=== PATIENT | female | born 1960 | race Caucasian/White ===

== ENCOUNTER 2018-12-26 09:12 | Inpatient (IN) ==
--- NOTE | 2018-11-25 12:55 | PAT Medication Instructions ---
Medication Instructions Date of Service November 25, 2018 Home Medications cholecalciferol (vitamin D3) [Vitamin D3] 2,000 unit PO QAM fluoxetine 40 mg PO QAM levothyroxine 125 mcg PO QAM meloxicam 15 mg PO QAM ASK your surgeon for instructions meloxicam 15 mg PO QAM DO NOT take the morning of surgery cholecalciferol (vitamin D3) [Vitamin D3] 2,000 unit PO QAM Take morning of surgery With a small sip of water, OTHERWISE NOTHING TO EAT OR DRINK AFTER MIDNIGHT: fluoxetine 40 mg PO QAM levothyroxine 125 mcg PO QAM Other Notes If you have any questions please call us at [phone] or [phone] or [phone] or [phone]
--- NOTE | 2018-11-25 12:55 | Anesthesiology Consultation ---
Date of Service November 25, 2018 Assessment & Plan (1) Fear of needles: (2) Encounter for pre-operative examination: - Patient anxious RE: needles-- requests anxiolytic prior to IV placement if possible* Chart Review Chart Review: Pending: Refer to Additional Notes / Consult section (pending preop testing (labs, EKG, CXR)) and Patient seen in Pre Admission Testing Teaching & Discussion Pre-Anesthesia Teaching/Discussion Notes: Instructed NPO after midnight before surgery,except medications with 15 cc of water. Medication instructions provided according to the PAT guidelines. History Surgery Operation Date: 12/26/18 07:00 Proposed Procedures p Left Total Knee Arthroplasty - Will Elizondo MD Height/Weight Height: 5 ft 9 in Weight: 114.3 kg Allergies Allergy/AdvReac Type Severity Reaction Status Date / Time No Known Allergies Allergy Verified 11/20/18 10:31 Medications Home Medications Medication Instructions Recorded Confirmed Last Taken cholecalciferol (vitamin D3) 2,000 unit PO QAM 11/20/18 11/20/18 11/20/18 [Vitamin D3] fluoxetine 40 mg PO QAM 11/20/18 11/20/18 11/20/18 levothyroxine 125 mcg PO QAM 11/20/18 11/20/18 Unknown meloxicam 15 mg PO QAM 11/20/18 11/20/18 11/20/18 Past Medical History Medical History Anxiety and depression Arthritis Degenerative disc disease Fear of needles Hypothyroidism Obesity Osteoarthritis Sleep apnea "could not tolerate" CPAP Exercise / Class Metabolic Activity III < 4 Walking/Shop/Light housework Past Surgical History Surgical History History of appendectomy History of colonoscopy History of laparoscopic cholecystectomy History of surgery on extremity LEFT LEG History of total hysterectomy History of total knee replacement (TKR) RIGHT Past Anesthesia History No Hx of Anesthesia Complications and No Family Hx of Anesthesia Complications History of PONV No Hx of PONV and No Hx of Motion Sickness Social History Smoking Status: Former smoker Do You Dip or Chew Tobacco: No Smoking End Date: QUIT 30 YR AGO Hx Alcohol Use: No Hx Substance Use: No substance use type: does not use Review of Systems Patient denies chest pain, shortness of breath, reflux, cough, wheezing, palpitations. Physical Exam Vital Signs VITALS BP 151/98 (patient very anxious RE: needles/upcoming surgery- Patient advised to followup with PCP regarding elevated BP) P 62 TEMP 98.3 SP02 95%RA RESP 16 PHYSICAL Full neck and c-spine range of motion. Full TMJ range of motion. TMD 3 finger breaths Mallampati Score 2 Dentition: intact Lungs: clear throughout to auscultation Cardiac: regular rate and rhythm, no murmurs noted Spine: normal Carotid arteries: negative bruit Extremities: no edema
--- NOTE | 2018-11-25 13:56 | XRay Report ---
XR chest Pre-admission PA/Lat CLINICAL HISTORY: Preoperative chest COMPARISON STUDY: No previous studies for comparison. FINDINGS: The cardiac and mediastinal contours are normal. There is no evidence of focal pulmonary co nsolidation. There is no evidence of failure. No pleural effusions are visualized.[ IMPRESSION: No active disease in the chest. Electronically signed by: Wayne Jimenes M.D. 11/25/2018 1:54 PM
[2018-11-25 16:03] LABS: Appearance Urine Clear (Clear); Basophils # (auto) 0.04 K/uL (0-0.2); Basophils % (auto) 0.5 %; Bilirubin Urine Negative (Negative); Blood Urine Negative (Negative); Color Urine Yellow; Eosinophils # (auto) 0.19 K/uL (0-0.5); Eosinophils % (auto) 2.2 %; Glucose Urine UA Negative (Negative); Hematocrit (blood only) 40.7 % (37-47); Hemoglobin 13.2 g/dL (12.0-16.0); Immature Granulocytes # (auto) 0.01 K/uL (0.00-0.02); Immature Granulocytes % (auto) 0.1 %; Ketones Urine Trace (Negative); Leukocyte Esterase Urine Negative (Negative); Lymphocytes # (auto) 3.27 K/uL (1.2-3.4); Mean Corpuscular Hemoglobin 30.2 pg (25-34); Mean Corpuscular Hgb Conc 32.4 g/dL (32-36); Mean Corpuscular Volume 93.1 fL (80-100); Mean Platelet Volume 11.6 fL (7.4-10.4); Monocytes # (auto) 0.57 K/uL (0.11-0.59); Monocytes % (auto) 6.5 %; Neutrophils # (auto) 4.75 K/uL (1.4-6.5); Neutrophils % (auto) 53.7 %; Nitrite Urine Negative (Negative); Platelet Count 315 K/uL (130-400); Protein Urine Negative (Negative); RDW Coefficient of Variation 12.9 % (11.5-14.5); RDW Standard Deviation 44.1 fL (36.4-46.3); Red Blood Count 4.37 M/uL (4.2-5.4); Urobilinogen Urine Negative (Negative); White Blood Count 8.83 K/uL (4.8-10.8)
[2018-11-25 16:14] LABS: Albumin Level 3.6 gm/dl (3.4-5.0); BUN Creatinine Ratio 19.7 (10-20); Calcium 8.7 mg/dl (8.5-10.1); Creatinine Clr Calc Pharmacy 104.6 ml/min; Est GFR (African American) 93.4; Est GFR (Non-African American) 80.6; Potassium 3.9 mmol/L (3.5-5.1)
[2018-11-25 16:18] LABS: Partial Thromboplastin Ratio 0.9; Partial Thromboplastin Time 25.7 Seconds (21.0-31.0); Prothrombin Time 10.3 Seconds (9.0-12.0)
[2018-11-26 06:08] LABS: Estimated Average Glucose 134 mg/dl; Hemoglobin A1C 6.3 % (4.5-5.6)
--- NOTE | 2018-11-27 12:25 | History & Physical Report ---
Date of Service November 27, 2018 Assessment & Plan (1) Primary osteoarthritis of left knee: Treatment options were discussed. Patient has fairly significant osteoarthritis of left knee. She has failed conservative measures as above. Pain is interfering with ability to carry out daily activities. Risks, benefits and alternatives to surgery including but not limited to infection, DVT, pain, stiffness, need for revision surgery, damage to blood vessels, damage to nerves, PE, , were discussed with the patient and they wish to proceed. Plan will be for left total knee arthroplasty on 12/26/18. Plan will be for aspirin 81mg BID x 30 days for DVT prophylaxis. Will plan on outpatient PT upon discharge from hospital. All questions answered. She will follow up post operatively. History of Present Illness Chief Complaint: Left knee pain Primary Care Provider: Elizabeth Ambrocio PA-C Patient is a 57 year old female with PMHx significant for ELEANOR (no cpap), hypothyroidism, anxiety/depression, previous right knee replacement. She presents with long standing left knee pain. She has failed conservative measures including cortisone injections and anti-inflammatory medications. She would like to proceed with left knee replacement. Patient denies headaches, sweats, fevers, chills, double vision, blurred vision, cough, sore throat, dysphagia, chest pain, sob, wheezing, n/v/d/c, numbness, tingling, fatigue, urinary symptoms, mood disorders. ROS positive for left knee pain and stiffness. Allergies Allergy/AdvReac Type Severity Reaction Status Date / Time No Known Allergies Allergy Verified 11/20/18 10:31 Home Medications Home Medications Medication Instructions Recorded Confirmed Type cholecalciferol (vitamin D3) 2,000 unit PO QAM 11/20/18 11/20/18 History [Vitamin D3] fluoxetine 40 mg PO QAM 11/20/18 11/20/18 History levothyroxine 125 mcg PO QAM 11/20/18 11/20/18 History meloxicam 15 mg PO QAM 11/20/18 11/20/18 History Past Med/Surg History Medical History Anxiety and depression Arthritis Degenerative disc disease Fear of needles Hypothyroidism Obesity Osteoarthritis Sleep apnea "could not tolerate" CPAP Surgical History History of appendectomy History of colonoscopy History of laparoscopic cholecystectomy History of surgery on extremity LEFT LEG History of total hysterectomy History of total knee replacement (TKR) RIGHT Social History Preferred Language: Sinhala Communication Ability: Effective 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 Beliefs That Will Affect Care: None Current Living Situation: Spouse Other Information That Helps Us Care for You: No Feels Safe at Home: Yes Smoking Status: Former smoker Do You Dip or Chew Tobacco: No ; Smoking End Date: QUIT 30 YR AGO ; Hx Alcohol Use: No Hx Substance Use: No Review of Systems All systems reviewed & are unremarkable except as noted in HPI & below Physical Exam Constitutional: well developed and well nourished; no acute distress Eyes: PERRL, conjunctivae normal, anicteric sclerae ENMT: external ear and nose normal, oropharynx normal Neck: trachea midline, no thyromegaly Respiratory: normal respiratory effort, lungs clear to auscultation Cardiovascular: RRR, no murmur, no edema Musculoskeletal: Left knee: tenderness medial joint line, ROM 0-130 with crepitus. Stable to valgus and varus stress, positive Piero's. Skin: no rashes, warm and dry Neurologic: patellar DTR's 2+ bilat, sensation intact Psychiatric: A+Ox3, euthymic affect Results & Data Laboratory Results Lab Results 11/25/18 11/25/18 11/25/18 Range/Units 13:20 13:20 13:20 WBC 8.83 (4.8-10.8) K/uL RBC 4.37 (4.2-5.4) M/uL Hgb 13.2 (12.0-16.0) g/dL Hct 40.7 (37-47) % MCV 93.1 (80-100) fL MCH 30.2 (25-34) pg MCHC 32.4 (32-36) g/dL RDW Std Deviation 44.1 (36.4-46.3) fL RDW Coeff of Diana 12.9 (11.5-14.5) % Plt Count 315 (130-400) K/uL MPV 11.6 H (7.4-10.4) fL Immature Gran % (Auto) 0.1 % Neut % (Auto) 53.7 % Lymph % (Auto) 37.0 % Falls % (Auto) 6.5 % Eos % (Auto) 2.2 % Baso % (Auto) 0.5 % Immature Gran # (Auto) 0.01 (0.00-0.02) K/uL Neut # (Auto) 4.75 (1.4-6.5) K/uL Lymph # (Auto) 3.27 (1.2-3.4) K/uL Falls # (Auto) 0.57 (0.11-0.59) K/uL Eos # (Auto) 0.19 (0-0.5) K/uL Baso # (Auto) 0.04 (0-0.2) K/uL PT (9.0-12.0) Seconds INR (0.9-1.1) APTT (21.0-31.0) Seconds PTT Ratio Sodium 142 (136-145) mmol/L Potassium 3.9 (3.5-5.1) mmol/L Chloride 107 (98-107) mmol/L Carbon Dioxide 27 (21-32) mmol/L Anion Gap 8.0 (3-11) BUN 16 (7-18) mg/dl Creatinine 0.82 (0.6-1.2) mg/dl Est Cr Clr Drug Dosing 104.6 ml/min Est GFR ( Amer) 93.4 Est GFR (Non-Af Amer) 80.6 BUN/Creatinine Ratio 19.7 (10-20) Glucose 155 H (70-99) mg/dl Estimat Average Glucose mg/dl Hemoglobin A1c (4.5-5.6) % Calcium 8.7 (8.5-10.1) mg/dl Albumin 3.6 (3.4-5.0) gm/dl Urine Color Yellow Urine Appearance Clear (Clear) Urine pH 5.0 (4.5-7.5) Ur Specific [place] 1.030 (1.000-1.030) Urine Protein Negative (Negative) Urine Glucose (UA) Negative (Negative) Urine Ketones Trace H (Negative) Urine Blood Negative (Negative) Urine Nitrite Negative (Negative) Urine Bilirubin Negative (Negative) Urine Urobilinogen Negative (Negative) Ur Leukocyte Esterase Negative (Negative) Blood Type Antibody Screen 11/25/18 11/25/18 11/25/18 Range/Units 13:20 13:20 13:20 WBC (4.8-10.8) K/uL RBC (4.2-5.4) M/uL Hgb (12.0-16.0) g/dL Hct (37-47) % MCV (80-100) fL MCH (25-34) pg MCHC (32-36) g/dL RDW Std Deviation (36.4-46.3) fL RDW Coeff of Diana (11.5-14.5) % Plt Count (130-400) K/uL MPV (7.4-10.4) fL Immature Gran % (Auto) % Neut % (Auto) % Lymph % (Auto) % Falls % (Auto) % Eos % (Auto) % Baso % (Auto) % Immature Gran # (Auto) (0.00-0.02) K/uL Neut # (Auto) (1.4-6.5) K/uL Lymph # (Auto) (1.2-3.4) K/uL Falls # (Auto) (0.11-0.59) K/uL Eos # (Auto) (0-0.5) K/uL Baso # (Auto) (0-0.2) K/uL PT 10.3 (9.0-12.0) Seconds INR 1.0 (0.9-1.1) APTT 25.7 (21.0-31.0) Seconds PTT Ratio 0.9 Sodium (136-145) mmol/L Potassium (3.5-5.1) mmol/L Chloride (98-107) mmol/L Carbon Dioxide (21-32) mmol/L Anion Gap (3-11) BUN (7-18) mg/dl Creatinine (0.6-1.2) mg/dl Est Cr Clr Drug Dosing ml/min Est GFR ( Amer) Est GFR (Non-Af Amer) BUN/Creatinine Ratio (10-20) Glucose (70-99) mg/dl Estimat Average Glucose 134 mg/dl Hemoglobin A1c 6.3 H (4.5-5.6) % Calcium (8.5-10.1) mg/dl Albumin (3.4-5.0) gm/dl Urine Color Urine Appearance (Clear) Urine pH (4.5-7.5) Ur Specific [place] (1.000-1.030) Urine Protein (Negative) Urine Glucose (UA) (Negative) Urine Ketones (Negative) Urine Blood (Negative) Urine Nitrite (Negative) Urine Bilirubin (Negative) Urine Urobilinogen (Negative) Ur Leukocyte Esterase (Negative) Blood Type A Positive Antibody Screen NEGATIVE Diagnostic Findings Left knee: Moderate to severe joint space narrowing medial compartment and patellofemoral joint. Periarticular osteophyte formation and subchondral sclerosis most severe PF joint.
[~2018-12-26 09:12] MED LIST: ACETAMINOPHEN 500 MG TAB PO SCH; BUPIVACAINE 0.5 % 5 MG/1 ML PF 10ML VIAL ONE; BUPIVACAINE/EPINEPHRINE 0.25% 1:200,000 30 ML VIAL ONE; CEFAZOLIN 2000MG 2,000 MG/15 ML SYR IV SCH; CeleBREX 200 MG CAP PO SCH; FAMOTIDINE 20 MG TAB PO SCH; GABAPENTIN 600 MG DOSE PO SCH; LR 500ML BOLUS, THEN 15ML/HR IV SCH; METOCLOPRAMIDE HCL 10 MG TABLET PO SCH; OXYCODONE HCL 10 MG TABCR (OXYCONTIN) PO SCH; ROPIVACAINE 0.5% HCL/PF 150 MG, BUPIVACAINE 0.5% MPF 30 ML, EPINEPHrine 30MG/30ML (OR U... INSTIL SCH; TRANEXAMIC ACID 1,000 MG **IV Intra-op IV SCH; TRANEXAMIC ACID 1,000 MG **IV Pre-op IV SCH; dexAMETHasone 4 MG TAB PO SCH
[2018-12-26] MEDS ORDERED: MIDAZOLAM HCL 1 MG/ML 2ML VIAL ONE (10:07)
[2018-12-26] MEDS ORDERED: fentaNYL citrate 100 MCG/2 ML VIAL ONE (10:07)
--- NOTE | 2018-12-26 10:36 | History & Physical Bridge Note ---
Date of Service December 26, 2018 History & Physical Bridge Note I have examined the patient, reviewed the History & Physical and in the interval since the performance of the History & Physical I have noted the following changes of clinical significance: no changes noted
[2018-12-26] MEDS ORDERED: ORTHO JOINT ANESTHETIC ONE (11:33)
[2018-12-26] MEDS ORDERED: BACITRACIN INJ 50,000 UNIT VIAL ONE (11:33)
[2018-12-26] MEDS ORDERED: PROPOFOL IV EMULSION 10 MG/ML 20 ML VIAL IV ONE ×3 (12:55→13:47)
[2018-12-26] MEDS ORDERED: LIDOCAINE HCL 2% 2 ML VIAL/AMP(20MG/ML) INFIL ONE (12:55)
[2018-12-26] MEDS ORDERED: ONDANSETRON INJ 2 MG/ML 2 ML VIAL ONE (12:55)
--- NOTE | 2018-12-26 13:59 | Operative Report ---
Post Operative Report Pre & Post Diagnosis Operation Date: 12/26/18 12:30 Pre-Op Diagnosis: Left Knee Osteoarthritis Post-Op Diagnosis: Left Knee Osteoarthritis I identified the patient and participated in the time-out.: Yes Procedure Operation Date: 12/26/18 12:30 Actual Procedures p Left Total Knee Arthroplasty(Left) - Will Elizondo MD Surgeon Will Elizondo MD Orchestra Leader Ambrose Blood PA-C Estimated Blood Loss 20 Findings Consistent with Post-Op Diagnosis Specimens Bone and tissue Drains 2 Hemovac Anesthesia Type Spinal MAC Complications none Disposition Accompanied Patient To Recovery: No Disposition: Recovery Room Indications The patient is a 58-year-old female long-standing arthritic change of the left knee. She has failed conservative measures including injection, anti- inflammatories, rehab. She has [id number] particular in the medial compartment and wishes to proceed with left total knee arthroplasty Description of Procedure Risks benefits and alternatives of surgery including but not limited to infection, DVT, pain, stiffness, need for surgery, damage to blood vessels, damage to nerves or risks of anesthesia were discussed with the patient and they wished to proceed. The patient was identified and the laterality was confirmed and marked. They received a preoperative antibiotic as well as a spinal anesthetic and an abductor canal block. A well-padded tourniquet was applied and then the limb was prepped and draped in standard manner with ChloraPrep. The limb was exsanguinated and the tourniquet was inflated. I made a standard anterior incision. I sharply incised the skin then utilized Bovie electrocautery to achieve hemostasis. I made a medial parapatellar arthrotomy and mobilized the patella laterally. I then excised the anterior horns of the medial and lateral meniscus as well as the infrapatellar fat pad. I elevated a portion of the MCL off of the tibia. I then pinned into place a patient-matched distal femoral cutting guide and made my distal femoral resection. I then pinned into place the 5 in 1 femoral cutting guide. I made my anterior, posterior and chamfer cuts. I then excised the cruciates and the remaining portions of the menisci. I then pinned into place a patient- matched tibial cutting guide and made my tibial resection. I then pinned into place the tibial plate a utilizing alignment sammy to confirm rotation. I then cut for the post. Utilizing a lamina plastic panel installer and I then removed posterior osteophytes off the femur. I then placed a trial femur into position and cut for the trochlear component. I then sequentially trialed to size the polyethylene until there was good soft tissue balancing and range of motion. I then prepared the patella with a freehand cut utilizing sagittal saw. I sized and drilled for the patella. There was good tracking to the patella no lateral release was needed. All the trial components were removed. The deep tissues were anesthetized with an ortho mix solution. Then with Simplex HV with gentamicin cement, I cemented my definitive components. Definitive components, [employer] [place] 2: Femur 6 Tibia 4 Poly 12 Patella 29 oval A betadine soak was performed. A deep drain was placed. The arthrotomy was closed with interrupted #1 Vicryl suture subcutaneous tissue was closed with interrupted 2-0 Vicryl suture. The skin was closed with with mina. An Acticoat and Wallace dressing were placed. Sterile dressings were applied. All needle and sponge counts were correct at the end of the procedure patient was transferred to the PACU in stable condition without apparent complication. The PA-C was necessary for assistance with procedure for assistance in positioning, prepping, draping, retraction and closure. I attest to the content of the Intraoperative Record and any orders documented therein. Any exceptions are noted below.
--- NOTE | 2018-12-26 15:18 | XRay Report ---
XR knee LT 1 or 2V routine CLINICAL HISTORY: Postoperative evaluation. COMPARISON: None FINDINGS: Alignment of the total left knee arthroplasty is anatomic. There is no fracture or unexpec lisa radiopaque foreign body. There are drains and skin mina. IMPRESSION: Expected findings following total left knee arthroplasty. Electronically signed by: Nicola Deluna M.D. 12/26/2018 3:17 PM
[2018-12-26] MEDS ORDERED: ONDANSETRON INJ 2 MG/ML 2 ML VIAL IV PRN ×2 (15:27→15:58)
[2018-12-26] MEDS ORDERED: fentaNYL citrate 100 MCG/2 ML VIAL IV PRN (15:27)
[2018-12-26] MEDS ORDERED: ePHEDrine sulfate 50 MG/ML AMP IV PRN (15:27)
[2018-12-26] MEDS ORDERED: ATROPINE SULFATE 0.1 MG/ML 10ML SYR IV PRN (15:27)
[2018-12-26] MEDS ORDERED: HYDROmorphone INJ 1 MG/ML SYRINGE IV PRN (15:27)
--- NOTE | 2018-12-26 15:28 | Anesthesiology Progress Note ---
Date of Service December 26, 2018 Anesthesia Post Procedure Vital Signs Vital Signs: Temp Pulse Pulse Resp BP Pulse Ox 12/26/18 15:20 75 17 120/73 90 12/26/18 15:10 58 L 16 106/73 96 12/26/18 15:00 64 16 107/69 95 12/26/18 14:50 75 12 107/69 98 12/26/18 14:41 36.2 C L 72 17 125/83 97 12/26/18 09:52 36.8 C 62 20 141/98 H 96 Pain Intensity Left Knee: Pain Intensity: 0 Transfer of Care Handoff Completed per policy Notes Mental Status: alert / awake / arousable and participated in evaluation Patient Amnestic to Procedure: Yes Nausea / Vomiting: adequately controlled Pain: adequately controlled Airway Patency, RR, SpO2: stable & adequate BP & HR: stable & adequate Hydration State: stable & adequate Anesthetic Complications: no major complications apparent and Pt Satisfied with anesthetic care
[2018-12-26] MEDS ORDERED: HYDROmorphone INJ 0.5 MG/0.5 ML SYR IV PRN (15:58)
[2018-12-26] MEDS ORDERED: MAGNESIUM HYDROXIDE SUSP 30 ML UDC PO PRN (15:58)
[2018-12-26] MEDS ORDERED: BISACODYL 10 MG SUPP PR PRN (15:58)
[2018-12-26] MEDS ORDERED: NALOXONE HCL 0.4 MG/1 ML VIAL/CARP IV PRN (15:58)
[2018-12-26] MEDS ORDERED: SODIUM CHLORIDE 0.9% 1000ML 1,000 ML IV SCH (16:15)
[2018-12-26] MEDS: OXYCODONE HCL IR 5 MG TAB (IMMEDIATE RELEASE) PO PRN (18:19)
[2018-12-26] MEDS: CEFAZOLIN 2000MG 2,000 MG/15 ML SYR IV SCH (20:35)
[2018-12-26] MEDS: DOCUSATE SODIUM 100 MG CAP PO SCH (20:36)
[2018-12-26] MEDS: ACETAMINOPHEN 500 MG TAB PO SCH (20:36)
[2018-12-26] MEDS: LISINOPRIL 20 MG TAB PO SCH (20:36)
[2018-12-26] MEDS: CALCIUM CARBONATE 1250MG TAB PO SCH (20:36)
[2018-12-26] MEDS: ASPIRIN 81 MG ECTAB PO SCH (20:37)
[2018-12-26] MEDS: SENNA 8.6 MG TAB PO SCH (20:37)
[2018-12-27] MEDS: ACETAMINOPHEN 500 MG TAB PO SCH ×3 (05:27→21:57)
[2018-12-27] MEDS: CEFAZOLIN 2000MG 2,000 MG/15 ML SYR IV SCH (05:27)
[2018-12-27] MEDS: LEVOTHYROXINE SODIUM 150 MCG TABLET PO SCH (05:27)
[2018-12-27 05:39] LABS: Hematocrit (blood only) 37.8 % (37-47); Hemoglobin 12.6 g/dL (12.0-16.0); Mean Corpuscular Hemoglobin 30.6 pg (25-34); Mean Corpuscular Hgb Conc 33.3 g/dL (32-36); Mean Corpuscular Volume 91.7 fL (80-100); Platelet Count 320 K/uL (130-400); RDW Coefficient of Variation 12.5 % (11.5-14.5); RDW Standard Deviation 42.1 fL (36.4-46.3); Red Blood Count 4.12 M/uL (4.2-5.4); White Blood Count 22.48 K/uL (4.8-10.8)
[2018-12-27 06:12] LABS: Calcium 9.1 mg/dl (8.5-10.1); Est GFR (African American) 95.5; Est GFR (Non-African American) 82.4; Potassium 4.9 mmol/L (3.5-5.1)
--- NOTE | 2018-12-27 07:21 | Orthopedic Progress Note ---
Date of Service December 27, 2018 Assessment & Plan (1) Primary osteoarthritis of left knee: POD#1 Left TKA -Pain management -DVT prophylaxis-ASA 81mg BID x 30 days -PT/OT -Labs stable as above -D/C planning-plan on outpatient PT upon discharge, likely tomorrow Subjective Patient is POD#1 left TKA. Doing well, pain worsening this morning but well controlled. No complaints of chest pain, sob, dizziness, n/v/d. Review of Systems Review of Systems: All systems reviewed & are unremarkable except as noted in HPI & below Physical Exam Physical Exam: Left knee: Dressing is c/d/i, Wallace intact. Hemovac in place. Toes mobile, good dorsiflexion. No calf tenderness. Distally n/v status and sensation intact. Constitutional: well developed and well nourished; no acute distress Results & Data Vital Signs (Past 12 Hours) Vital Signs Temp Pulse Resp BP Pulse Ox 12/27/18 07:06 36.4 C L 66 17 143/83 H 96 12/27/18 03:41 36.5 C 55 L 18 148/83 H 94 12/26/18 23:40 36.7 C 84 18 121/72 96 Laboratory Results H & H 11/25/18 12/27/18 Range/Units 13:20 05:01 Hgb 13.2 12.6 (12.0-16.0) g/dL Hct 40.7 37.8 (37-47) % Coagulation 11/25/18 Range/Units 13:20 INR 1.0 (0.9-1.1)
--- NOTE | 2018-12-27 07:56 | Anesthesiology Progress Note ---
Date of Service December 27, 2018 Anesthesia Post Procedure Vital Signs Vital Signs: Temp Pulse Pulse Resp BP Pulse Ox 12/27/18 07:06 36.4 C L 66 17 143/83 H 96 12/27/18 03:41 36.5 C 55 L 18 148/83 H 94 12/26/18 23:40 36.7 C 84 18 121/72 96 12/26/18 19:06 36.7 C 86 15 125/78 96 12/26/18 17:54 36.8 C 89 18 147/88 H 97 12/26/18 16:47 36.8 C 60 16 132/81 94 12/26/18 16:15 36.7 C 83 18 119/75 97 12/26/18 15:45 36.4 C L 79 14 121/75 97 12/26/18 15:30 36.7 C 88 15 104/69 94 12/26/18 15:20 75 17 120/73 90 12/26/18 15:10 58 L 16 106/73 96 12/26/18 15:00 64 16 107/69 95 12/26/18 14:50 75 12 107/69 98 12/26/18 14:41 36.2 C L 72 17 125/83 97 12/26/18 09:52 36.8 C 62 20 141/98 H 96 Pain Intensity Left Knee: Pain Intensity: 3 Notes Mental Status: alert / awake / arousable and participated in evaluation Patient Amnestic to Procedure: Yes Nausea / Vomiting: adequately controlled Pain: adequately controlled Airway Patency, RR, SpO2: stable & adequate BP & HR: stable & adequate Hydration State: stable & adequate Neuraxial Anesthesia: was administered and sensory block resolved Anesthetic Complications: no major complications apparent and Pt Satisfied with anesthetic care
[2018-12-27] MEDS: FLUOXETINE HCL 20 MG CAP PO SCH (08:52)
[2018-12-27] MEDS: MULTIVITAMIN TAB PO SCH (08:52)
[2018-12-27] MEDS: DOCUSATE SODIUM 100 MG CAP PO SCH ×2 (08:52→20:09)
[2018-12-27] MEDS: CALCIUM CARBONATE 1250MG TAB PO SCH ×2 (08:52→20:09)
[2018-12-27] MEDS: ROSUVASTATIN CALCIUM 10 MG TAB PO SCH (08:52)
[2018-12-27] MEDS: CHOLECALCIFEROL 1,000 UNITS TAB PO SCH (08:52)
[2018-12-27] MEDS: ASPIRIN 81 MG ECTAB PO SCH ×2 (10:02→20:09)
[2018-12-27] MEDS: OXYCODONE HCL IR 5 MG TAB (IMMEDIATE RELEASE) PO PRN ×2 (10:02→18:19)
[2018-12-27] MEDS ORDERED: KETOROLAC 30 MG/ML VIAL IV ONE (19:32)
[2018-12-27] MEDS: LISINOPRIL 20 MG TAB PO SCH (20:10)
[2018-12-27] MEDS: SENNA 8.6 MG TAB PO SCH (20:10)
[2018-12-28] MEDS: LEVOTHYROXINE SODIUM 150 MCG TABLET PO SCH (05:49)
[2018-12-28] MEDS: ACETAMINOPHEN 500 MG TAB PO SCH (05:49)
[2018-12-28] MEDS: MULTIVITAMIN TAB PO SCH (08:20)
[2018-12-28] MEDS: CHOLECALCIFEROL 1,000 UNITS TAB PO SCH (08:21)
[2018-12-28] MEDS: CALCIUM CARBONATE 1250MG TAB PO SCH (08:21)
[2018-12-28] MEDS: DOCUSATE SODIUM 100 MG CAP PO SCH (08:21)
[2018-12-28] MEDS: ROSUVASTATIN CALCIUM 10 MG TAB PO SCH (08:21)
[2018-12-28] MEDS: ASPIRIN 81 MG ECTAB PO SCH (08:21)
[2018-12-28] MEDS: FLUOXETINE HCL 20 MG CAP PO SCH (08:22)
--- NOTE | 2018-12-28 08:27 | Orthopedic Progress Note ---
Date of Service December 28, 2018 Assessment & Plan (1) Status post left knee replacement: 58 yo female stable POD #2 s/p left TKA 1. Med management 2. DVT prophylaxis- ASA, SCDs 3. PT/OT 4. D/C planning- home w/ HH Subjective Pt resting in bed, pain controlled, denies complaints Physical Exam Physical Exam: [place] dressing in place, toes mobile, NVI, calf soft, NT Results & Data Vital Signs (Past 12 Hours) Vital Signs Temp Pulse Resp BP Pulse Ox 12/28/18 06:47 36.6 C 58 L 16 144/95 H 96 12/27/18 23:25 36.6 C 72 18 146/96 H 95
[2018-12-28] MEDS: OXYCODONE HCL IR 5 MG TAB (IMMEDIATE RELEASE) PO PRN ×2 (08:47→13:12)
== END 2018-12-28 13:15 | disposition home health service (06) | DRG 470 ==
LOC: ASU 09:12 → 3E 14:51